=== PATIENT | male | born 2000 | race Caucasian/White ===

== ENCOUNTER 2022-10-31 08:24 | Emergency (ER) | payer OTHER ==
[~2022-10-31] VITALS: Ht 177.8 cm; Wt 77.1 kg
[2022-10-31 08:35] VITALS: BP 146/96
--- NOTE | 2022-10-31 08:35 | NUR ---
PT AMB TO BED 11.
--- NOTE | 2022-10-31 08:36 | NUR ---
Patient being evaluated by DR MENA at bedside.
[2022-10-31] MEDS ORDERED: BACITRACIN OINT 500 UNITS/GM PKT TP ONE ×2 (09:10→09:11)
--- NOTE | 2022-10-31 09:10 | NUR ---
WOUND TO L HAND FIRST DIGIT IRRIGATED. NON ADHERENT APPLIED TO L HAND FIRST DIGIT. + CMS AFTER APPLICATION.
--- NOTE | 2022-10-31 09:36 | NUR ---
Patient discharged with v/s stable. Written and verbal after care instructions given and explained. Patient verbalized understanding. Ambulatory with steady gait. All questions addressed prior to discharge. Advised to follow up with PMD.
== END 2022-10-31 09:12 | disposition home or self-care (01) ==
LOC: MED 08:24
DX: S61.412A Laceration without foreign body of left hand, initial encounter (principal); W26.8XXA Contact with other sharp object(s), not elsewhere classified, initial encounter; Y93.89 Activity, other specified; Y92.89 Other specified places as the place of occurrence of the external cause; Y99.8 Other external cause status
CPT/HCPCS: 12001; 90471; 90715; 99283